=== PATIENT | male | born 1980 | race Caucasian/White ===

== ENCOUNTER 2021-01-29 20:13 | Emergency (ER) | payer SELFPAY ==
[~2021-01-29] VITALS: Ht 200.7 cm; Wt 73.0 kg
[2021-01-29] MEDS ORDERED: MEDICAL MARIJUANA (20:47)
[2021-01-29 20:59] LABS: HEMOGLOBIN 13.1 g/dl (14.0-18.0); IMMATURE GRANULOCYTES 0.5 % (0.0-5.0); MEAN CELL VOLUME 92.7 fL CALC (80.0-100.0); MEAN CORPUSCULAR HGB CONC 34.5 g/dL CAL (32.0-36.0); NEUT# 9.98 thou/uL (1.82-7.42); RED BLOOD COUNT 4.1 mill/uL (4.70-6.10); RED CELL DISTRI WIDTH 12.1 % (11.5-15.5)
[2021-01-29 21:17] LABS: ALKALINE PHOSPHATASE 79 u/l (38-126); AMYLASE 81 u/l (30-110); ANION GAP 13 (6-22 (CALC)); BILIRUBIN, TOTAL 0.3 mg/dL (0.0-1.4); BUN 13 mg/dL (9-20); BUN/CREATININE RATIO 17 (12-20 (CALC)); CARBON DIOXIDE 21 mmol/l (22-30); CHLORIDE 103 mmol/l (95-108); CREATININE 0.8 mg/dL (0.7-1.3); GFR > 60 ML/MIN (>=60 (CALC)); GFR FOR AFR.AMER. > 60 ML/MIN (>=60 (CALC)); LIPASE 71 u/l (23-300); POTASSIUM 3.4 mmol/l (3.5-5.1); SGOT/AST 35 u/l (17-59); SODIUM 134 mmol/l (137-146); TOTAL PROTEIN 6.8 g/dL (6.3-8.2)
[2021-01-29 21:27] LABS: MYOGLOBIN 23 ng/mL (0 - 121)
[2021-01-29] MEDS ORDERED: ONDANSETRON4 MG PO (23:47)
[2021-01-29] MEDS ORDERED: PREVACID30 M3 PO (23:47)
[2021-01-30 00:08] LABS: URINE BILIRUBIN - DIPSTICK NEGATIVE (NEGATIVE); URINE BLOOD DIPSTICK NEGATIVE (NEGATIVE); URINE COLOR YELLOW; URINE GLUCOSE - DIPSTICK NEGATIVE (NEGATIVE); URINE KETONE NEGATIVE (NEGATIVE); URINE LEUK ESTERASE NEGATIVE (NEGATIVE); URINE PROTEIN - DIPSTICK NEGATIVE (NEG-TRACE); URINE SPECIFIC GRAVITY 1.015; URINE UROBILINOGEN - DIPSTICK 0.2 E.U./dL (0.2)
[2021-01-30 00:09] LABS: URINE NITRITE - DIPSTICK NEGATIVE (Negative)
[2021-01-30 00:17] VITALS: BP 102/65
== END 2021-01-30 00:40 | disposition home or self-care (01) | DRG 897 ==
LOC: ED 20:13
PROVIDERS: Emergency Medicine
DX: F10.10 Alcohol abuse, uncomplicated (principal); F17.200 Nicotine dependence, unspecified, uncomplicated